=== PATIENT | male | born 1990 | race Asian ===

== ENCOUNTER 2021-08-22 17:43 | Outpatient (CLI) | payer BC ==
[2021-08-23 01:56] LABS: SARS-CoV-2 PCR by NAA Not Detected (NotDetected)
== END 2021-08-22 17:44 | disposition home or self-care (01) ==
LOC: LABBT 17:43
PROVIDERS: ATTEND Urology
DX: Z01.812 Encounter for preprocedural laboratory examination (principal); Z20.822 Contact with and (suspected) exposure to COVID-19
CPT/HCPCS: U0003; U0005

== ENCOUNTER 2021-08-24 07:42 | Day surgery (SDC) | payer BC, OTHER, SELFPAY ==
[2021-08-23 10:47] VITALS: BMI 29.9
[2021-08-24] MEDS ORDERED: Levofloxacin 500 mg/D5W 100 ml Premix Bag ONE (09:09)
[2021-08-24] MEDS ORDERED: Iothalamate Meglumine 60% 50 ML VIAL FS ONE (09:12)
[2021-08-24] MEDS ORDERED: Midazolam HCl 2 mg/2 ml Vial ONE (09:19)
[2021-08-24] MEDS ORDERED: Fentanyl 100 MCG/2 ML VIAL ONE (09:19)
[2021-08-24] MEDS ORDERED: Ondansetron PF 4 MG/2 ML Vial ONE (09:26)
[2021-08-24] MEDS ORDERED: Lidocaine 1% PF 5 ML VIAL ONE (09:26)
[2021-08-24] MEDS ORDERED: ePHEDrine 50 MG/ML VIAL ONE (09:26)
[2021-08-24] MEDS ORDERED: PROPOFOL 200 MG/20 ML VIAL ONE (09:26)
[2021-08-24] MEDS ORDERED: Ketorolac Tromethamine 30 MG/ML VIAL ONE (10:32)
[2021-08-24] MEDS ORDERED: Phenazopyridine HCl 100 MG TAB ONE (10:33)
[2021-08-24] MEDS ORDERED: Oxybutynin 5 MG TAB ONE (10:34)
== END 2021-08-24 13:20 | disposition home or self-care (01) ==
LOC: SDC 07:42
PROVIDERS: ATTEND Urology
PROC: 0TC48ZZ Extirpation of Matter from Left Kidney Pelvis, Via Natural or Artificial Opening Endoscopic (ICD-10-PCS; principal; 2021-08-24)
PROC: 0T778DZ Dilation of Left Ureter with Intraluminal Device, Via Natural or Artificial Opening Endoscopic (ICD-10-PCS; principal; 2021-08-24)
PROC: 0TC78ZZ Extirpation of Matter from Left Ureter, Via Natural or Artificial Opening Endoscopic (ICD-10-PCS; principal; 2021-08-24)
DX: N13.2 Hydronephrosis with renal and ureteral calculous obstruction (principal); Z79.899 Other long term (current) drug therapy
CPT/HCPCS: 74420; 82365; 88300; J1885; J1956; J2250; J3010; Q9961-U8

== ENCOUNTER 2022-03-20 17:12 | Outpatient (CLI) | payer BC | END 2022-03-20 17:13 | disposition home or self-care (01) | LOC: SCSRAD 17:12 | PROVIDERS: ATTEND Urology | DX: R82.991 Hypocitraturia (principal) | CPT/HCPCS: 74018 ==